=== PATIENT | female | born 1970 | race Caucasian/White ===

== ENCOUNTER 2021-07-09 11:49 | Outpatient (CLI) | payer OTHER ==
[~2021-07-09 11:49] MED LIST: PEPCID20 MG PO; ZOFRAN4 MG SL
== END 2021-07-09 12:00 | disposition home or self-care (01) ==
LOC: PPH VACUNA 11:49
PROVIDERS: ATTEND Emergency Medicine Pediatric Emergency Medicine
DX: Z23 Encounter for immunization (principal)